=== PATIENT | male | born 1975 | race American Indian/Alaskan Native ===

== ENCOUNTER 2017-07-05 20:23 | Emergency (ER) | payer SELFPAY ==
[2017-07-05] MEDS ORDERED: NACL 0.9% 500 ML IR ONE (21:25)
--- NOTE | 2017-07-05 21:29 | Emergency Department Report ---
- General Chief Complaint: Wound/Laceration Stated Complaint: RT WRIST LAC Time Seen by Provider: 07/05/17 21:11 Source: patient Mode of arrival: Ambulatory Limitations: No Limitations - History of Present Illness Initial Comments: Patient suffered a right wrist and hand laceration with a chainsaw. This happened prior to coming in. The BLOOD was dripping however denies feeling dizzy or short of breath. He says the pain at the site is of moderate to severe intensity with no aggravating factors. He said the bleeding stopped with pressure that he applied to the site. Patient also complains of numbness around the distribution of the radial nerve. He is also complaining of the wrist DROP -: Sudden Location: other (right hand) Extremity Location: Right: Hand Place: outdoors Patient Tetanus UTD: No (unsure if over 5 years ago) Context: accidental Associated Symptoms: pain, loss of feeling/numbness Treatments Prior to Arrival: bandage - Related Data Previous Rx's Medication Instructions Recorded Last Taken Type Cephalexin [Keflex] 500 mg PO Q8HR 10 Days #30 capsule 07/05/17 Unknown Rx Allergies Allergy/AdvReac Type Severity Reaction Status Date / Time No Known Allergies Allergy Unverified 07/05/17 20:36 ED Review of Systems ROS: Stated complaint: RT WRIST LAC Other details as noted in HPI ED Past Medical Hx - Past Medical History Previous Medical History?: No - Surgical History Past Surgical History?: No - Social History Smoking Status: Current Every Day Smoker Substance Use Type: None - Medications Home Medications: Home Medications Medication Instructions Recorded Confirmed Last Taken Type Cephalexin [Keflex] 500 mg PO Q8HR 10 Days #30 capsule 07/05/17 Unknown Rx ED Physical Exam - General Limitations: No Limitations General appearance: alert, in no apparent distress - Head Head exam: Present: atraumatic, normocephalic - Eye Eye exam: Present: normal appearance - ENT ENT exam: Present: mucous membranes moist, normal external ear exam - Neck Neck exam: Present: normal inspection - Respiratory Respiratory exam: Present: normal lung sounds bilaterally. Absent: respiratory distress - Cardiovascular Cardiovascular Exam: Present: regular rate, normal rhythm. Absent: systolic murmur, diastolic murmur, rubs, gallop - GI/Abdominal GI/Abdominal exam: Present: soft, normal bowel sounds. Absent: tenderness - Extremities Exam Extremities exam: Present: normal inspection - Back Exam Back exam: Present: normal inspection - Neurological Exam Neurological exam: Present: alert, oriented X3 - Psychiatric Psychiatric exam: Present: normal affect, normal mood - Skin Skin exam: Present: other (laceration 6cm in the dorsal aspect of the right hand and wrist. numbness of the lateral aspect of wrist and hand and lateral 3 fingers. wrist drop) ED Course Vital Signs 07/05/17 07/05/17 07/05/17 21:08 21:09 22:30 Temperature 98.4 F Pulse Rate 109 H 84 Respiratory 16 16 17 Rate Blood Pressure 133/100 142/93 [Left] O2 Sat by Pulse 97 97 100 Oximetry - Laceration /Wound Repair Right Wrist Wound Location: upper extremity (right wrist dorsal aspect) Wound Length (cm): 6 (cm) Wound's Depth, Shape: irregular Wound Explored: clean Irrigated w/ Saline (ccs): 400 (cc) Betadine Prep?: Yes Anesthesia: Lidocaine w/ Epi Volume Anesthetic (ccs): 10 (ml) Wound Debrided: minimal Wound Repaired With: sutures Suture Size/Type: 4:0, nylon Number of Sutures: 7 Layer Closure?: No Sterile Dressing Applied?: Yes Progress: Minimal blood loss patient tolerated the procedure well. ED Medical Decision Making - Lab Data Result diagrams: 07/05/17 21:37 - Radiology Data Radiology results: report reviewed - Medical Decision Making I did try to contact Dr. Pierre but after several calls there was no call back. Patient is to follow up with plastic surgery tomorrow. Patient was placed in a splint. He was advised to remove sutures in 10 days either at an urgent care on in an emergency room Critical care attestation.: If time is entered above; I have spent that time in minutes in the direct care of this critically ill patient, excluding procedure time. ED Disposition Clinical Impression: Wrist laceration Disposition: DC-01 TO HOME OR SELFCARE Is pt being admited?: No Does the pt Need Aspirin: No Condition: Stable Instructions: Suture Care (ED), Laceration (ED) Additional Instructions: Follow-up with plastic surgery Dr. Tato Bustamante Prescriptions: Cephalexin [Keflex] 500 mg PO Q8HR 10 Days #30 capsule Referrals: DANA MAJANO MD [Primary Care Provider] - 3-5 Days TATO BUSTAMANTE MD [Staff Physician] - 24 Hours Time of Disposition: 23:23 Print Language: SAMI
[2017-07-05] MEDS ORDERED: BOOSTRIX IM ONE (21:32)
[2017-07-05] MEDS ORDERED: XYLOCAINE 1%/ EPI 1:100,000 INFILTRATI ONE (21:46)
[2017-07-05 21:52] LABS: Basophils # (Auto) 0.1 K/mm3 (0.0-0.1); Basophils % (Auto) 0.7 % (0.0-1.8); Eosinophils % (Auto) 0.1 % (0.0-4.3); Hematocrit 41.9 % (35.5-45.6); Hemoglobin 14.7 gm/dl (11.8-15.2); Lymphocytes % (Auto) 11.4 % (13.4-35.0); Mean Corpuscular HGB Conc 35 % (32-34); Mean Corpuscular Hemoglobin 31 pg (28-32); Mean Corpuscular Volume 88 fl (84-94); Monocytes # (Auto) 0.4 K/mm3 (0.0-0.8); Monocytes % (Auto) 4.8 % (0.0-7.3); Platelet Count 244 K/mm3 (140-440); Red Blood Count 4.77 M/mm3 (3.65-5.03); Red Cell Distribution Width 12.9 % (13.2-15.2)
--- NOTE | 2017-07-05 22:45 | XRay Report ---
FINAL REPORT EXAM: XR WRIST 3+V RT HISTORY: right wrist laceration TECHNIQUE: Three views right wrist Comparison: None FINDINGS: Normal bony mineralization. Soft tissue laceration of the dorsum of the wrist. No definite bony involvement. No radiopaque foreign body. No fracture or dislocation identified. IMPRESSION: No fracture or involvement of the bones in the laceration. No radiopaque foreign body. Nonstandard positioning.
[2017-07-05] MEDS ORDERED: TRIPLE ANTIBIOTIC TP ONE (22:54)
[2017-07-05] MEDS ORDERED: KEFLEX PO ONE (23:12)
[2017-07-05 23:26] VITALS: BP 142/93
== END 2017-07-05 23:00 | disposition home or self-care (01) ==
LOC: ED 20:23
DX: S61.511A Laceration without foreign body of right wrist, initial encounter (principal); F17.200 Nicotine dependence, unspecified, uncomplicated; X58.XXXA Exposure to other specified factors, initial encounter; Y93.89 Activity, other specified; Y92.89 Other specified places as the place of occurrence of the external cause; Y99.8 Other external cause status
CPT/HCPCS: 36415; 85025; 90471; 90715; 99284; A6250

== ENCOUNTER 2017-07-13 09:40 | Emergency (ER) | payer OTHER ==
[2017-07-13] MEDS ORDERED: MOTRIN PO ONE ×2 (10:25→11:00)
--- NOTE | 2017-07-13 13:15 | Emergency Department Report ---
Suture/Staple Removal - [facility] Chief Complaint: Laceration/Recheck/Suture Stated Complaint: SUTURE Time Seen by Provider: 07/13/17 12:23 When Sutures or Jamila Placed: 5-7 Days Ago Wound Location: right wrist ED Review of Systems ROS: Stated complaint: SUTURE Other details as noted in HPI Constitutional: denies: chills, fever Respiratory: denies: cough, shortness of breath, wheezing Cardiovascular: denies: chest pain, palpitations Gastrointestinal: denies: abdominal pain, nausea, diarrhea Skin: other (lacertion to right wrist with 7 sutures). denies: rash, lesions ED Past Medical Hx - Past Medical History Previous Medical History?: No - Surgical History Past Surgical History?: No - Social History Smoking Status: Never Smoker - Medications Home Medications: Home Medications Medication Instructions Recorded Confirmed Last Taken Type Cephalexin [Keflex] 500 mg PO Q8HR 10 Days #30 capsule 07/05/17 Unknown Rx Suture Removal Exam - Exam General: Vital signs noted. No distress. Alert and acting appropriately. Wound: No Pathologic Erythema, No Tenderness, No Drainage, No Pus, No Wound Dehiscence Other Systems: All other systems reviewed and are unremarkable. ED Course Vital Signs 07/13/17 10:12 Temperature 98.6 F Pulse Rate 83 Respiratory 18 Rate Blood Pressure 155/103 O2 Sat by Pulse 100 Oximetry Vital Signs 07/13/17 07/13/17 10:12 14:47 Temperature 98.6 F Pulse Rate 83 66 Respiratory 18 16 Rate Blood Pressure 155/103 Blood Pressure 133/85 [Left] O2 Sat by Pulse 100 100 Oximetry ED Recheck MDM - Differential Diagnosis Wound Recheck, Suture/Staple Removal - Medical Decision Making This is a 41 y.o. male presents for suture removal of left wrist laceration from 8 days ago. Patient examined by me. Patient is non-toxic appearing and stable. Removed 7 sutures to left dorsal wrist. Surrounding skin well approximated. Steri-strips applied. Continue wearing wrist brace. Patient informed to f/u with plastics in 24-72 hours. Continue bactrim as prescribed for 10 days, 2 days remaining. Discussed ER care plan with patient. Patient agreed with plan. F/U with PCP. Critical care attestation.: If time is entered above; I have spent that time in minutes in the direct care of this critically ill patient, excluding procedure time. ED Disposition Clinical Impression: Visit for suture removal Disposition: TO HOME OR SELFCARE Is pt being admited?: No Does the pt Need Aspirin: No Condition: Stable Instructions: Suture Removal (ED) Additional Instructions: Follow up with Plastic Surgery in 24-48 hours. Follow up with Primary Care Provider. Return to ER if red, swollen, foul discharge, or fever. Referrals: [facility] [Outside] - 3-5 Days ROSSI DOBSON MD [Staff Physician] - 3-5 Days Time of Disposition: 13:15 Print Language: AUSTR[place]
[2017-07-13 14:48] VITALS: BP 133/85
== END 2017-07-13 14:55 | disposition home or self-care (01) ==
LOC: ED 09:40
DX: Z48.02 Encounter for removal of sutures (principal)